=== PATIENT | female | born 1980 | race Caucasian/White ===

== ENCOUNTER 2019-12-10 08:38 | Day surgery (SDC) | payer MEDICARE, OTHER ==
[2019-12-07 08:29] VITALS: BMI 39.9
--- NOTE | 2019-12-10 05:22 | HP ---
HISTORY AND PHYSICAL CHIEF COMPLAINT: Keloid of the right ear. HISTORY OF PRESENT ILLNESS: This patient is a 39-year-old female who is well known to my office and was recently seen for an evaluation of a possibly enlarging keloid in the right ear. She has undergone multiple Kenalog injections to keloids of the right and left ear. At the time that she was seen in my office, clinical examination revealed that she has in fact started to form a small keloid along an incision line near the right ear. It was recommended the patient once again undergo an injection of Kenalog into this area. It has been found that trying to excise these lesions only tends to stimulate more keloid formation. PAST MEDICAL HISTORY: Past medical history reveals that she has no known allergies. She is not currently on any medications. Previous surgeries include multiple surgeries of the left and right ear for keloids, wedge excision of keloid of the right ear and left ear with reconstruction of the right ear x1, multiple intradermal injections of Kenalog-40 suspension to keloids of the right and left ear, adenoidectomy, and tonsillectomy. The patient is 1 para, 1 , 0 miscarriage. There is no history of asthma, diabetes mellitus or hypertension. REVIEW OF SYSTEMS: The review of systems is completely noncontributory. PHYSICAL EXAMINATION: The patient is a very pleasant 39-year-old female who was alert and cooperative. HEENT EXAMINATION: Patient is normocephalic. Tympanic membranes are normal. Middle ear space is free of any fluid or infection. Inspection of the patient's right ear lobe reveals early formation of a keloid along a previous excision line. Pupils are equal, round, react to light and accommodation. Extraocular movements are within normal limits. Tympanic membrane and middle ear spaces are free of any fluid or infection. Intranasal examination reveals moderate septal deviation with compensatory hypertrophy of the inferior turbinates and a moderate amount of mucus on the mucous membranes and draining down the posterior pharynx. Examination of the oropharynx, cranial nerves 2 through 12 and the remainder of the head and neck exam all within normal limits. CHEST/CARDIOVASCULAR: Both lung phillips are clear to percussion and auscultation. The patient is in regular sinus rhythm. S1, S2 are present without any murmurs, S3s or S4s. Peripheral pulses are bilaterally symmetrical and within normal limits. ABDOMEN: There is no evidence any masses, megaly or tenderness. The abdomen is soft. Skin is unremarkable. Musculoskeletal and neurological are within normal limits. PELVIC/RECTAL EXAM: The pelvic/rectal exam is deferred at this time because the patient has this done on a regular basis at her family physician's office. The remainder of physical exam is essentially unremarkable. IMPRESSION: Keloid of the right ear. PLAN: The patient is scheduled to undergo Kenalog-40 injection of the right ear under IV sedation with MAC. ATTENTION RNS IN THE PRE-SURGICAL AREA: I have not ordered any pre-surgical prophylactic antibiotics for this patient. If the pharmacy department sends any pre- surgical prophylactic antibiotics to the pre-surgical area for this patient, that order should be cancelled and the medication should be returned to the pharmacy department. Please make sure that the patient's account is credited appropriately. I have discussed the risks, benefits and alternative therapies for the above-mentioned procedure and for both sedation/analgesia as well as necessary blood product administration, if indicated, as they pertain to this patient. The patient has indicated his or her understanding and acceptance of the risks and procedures discussed. MMODL / IJN: [id number] /
[~2019-12-10 08:38] MED LIST: DEXAMETHASONE SOD PHOSPHATE 10 MG/ML 1 ML VIAL IV ONE; HYDROmorphone 0.5 MG/0.5 ML SYRINGE IVP PRN; LACTATED RINGERS 1,000 ML IV SCH; MIDAZOLAM 2 MG/2 ML VIAL IV PRN; ONDANSETRON 4 MG/2 ML VIAL IVP ONE; SCOPOLAMINE 1.5MG/72HR PATCH TRANSDERM ONE
[2019-12-10 09:11] VITALS: TEMP 98.5
[2019-12-10] MEDS ORDERED: PROPOFOL 10 MG/ML 20 ML VIAL IV ONE (09:55)
[2019-12-10] MEDS ORDERED: fentaNYL (PF) 50 MCG/ML 2 ML AMP ONE (09:55)
[2019-12-10] MEDS ORDERED: MIDAZOLAM 2 MG/2 ML VIAL ONE (09:55)
[2019-12-10] MEDS ORDERED: KETAMINE 10 MG/ML 20 ML VIAL ONE (09:55)
[2019-12-10] MEDS: TRIAMCINOLONE ACETONIDE 40 MG/ML 1 ML VIAL INTRADERMA ONE ×2 (10:13→10:15)
[2019-12-10] MEDS ORDERED: LIDOCAINE 1%-EPI 1:100,000 20 ML VIAL SQ ONE ×2 (10:13→10:15)
[2019-12-10 10:33] VITALS: PULSE 80
[2019-12-10 10:51] VITALS: BP 117/68; RESP 18
--- NOTE | 2019-12-11 00:10 | OP ---
OPERATIVE REPORT DATE OF SURGERY: 12/10/2019 PREOPERATIVE DIAGNOSIS: Keloid of the right ear. POSTOPERATIVE DIAGNOSIS: Keloid of the right ear. ANESTHESIA: IV sedation with M.A.C. OPERATIVE PROCEDURE: Injection of 1.5 mL of Kenalog-40 suspension with lidocaine into keloid of the right ear. OPERATING SURGEON: Dr. Garza. COMPLICATIONS: None. OPERATIVE PROCEDURE: The patient was placed on the operating table in supine position. After uneventful induction and sedation, satisfactory sedation was obtained. Next, the patient's right ear was draped in the usual and customary fashion. Following this, using a 10 mL syringe with a 30-gauge needle, approximately 1.5 mL of a mixture of Kenalog-40 suspension with 0.5 mL of 1% lidocaine with epinephrine was injected throughout the entire keloid. Multiple injections were used to completely infiltrate the entire keloid lesion. At this point the procedure was terminated. There were no intraoperative complications. The patient tolerated the procedure well and was returned to the recovery room in satisfactory condition. MMODL / IJN: [id number] /
== END 2019-12-10 11:14 | disposition home or self-care (01) ==
LOC: OR 08:38
PROVIDERS: ATTEND Otolaryngology
DX: Z98.890 Other specified postprocedural states (principal); Z90.89 Acquired absence of other organs; J34.2 Deviated nasal septum; J34.3 Hypertrophy of nasal turbinates; E66.01 Morbid (severe) obesity due to excess calories; Z68.42 Body mass index [BMI] 45.0-49.9, adult; Z88.8 Allergy status to other drugs, medicaments and biological substances; Z91.018 Allergy to other foods
CPT/HCPCS: 81025; 11900; J2250; J1100; J3301; J2405; J3010; J2704

== ENCOUNTER → 2021-01-09 | Outpatient (CLI) | payer MEDICARE ==
--- NOTE | 2021-01-13 08:47 | MM ---
Reason for exam: screening (asymptomatic). Last mammogram was performed 5 years and 8 months ago. History: Patient is nulliparous. Taking hormonal contraceptives for 8 years 6 months beginning at age 34. Physical Findings: A clinical breast exam by your physician is recommended on an annual basis and results should be correlated with mammographic findings. MG Screening Mammo w CAD Bilateral CC and MLO view(s) were taken. Prior study comparison: May 05, 2015, bilateral MG screening mammo w CAD. The breast tissue is heterogeneously dense. This may lower the sensitivity of mammography. Central superior right breast focal asymmetry was present previously but is now more defined. ASSESSMENT: Incomplete: need additional imaging evaluation, BI-RAD 0 RECOMMENDATION: Special view mammogram of the right breast. (3D) If lesion persists on supplemental views, image directed ultrasound is recommended. [facility] will attempt to contact patient to return for supplemental views and ultrasound if indicated.
== END ==
LOC: RADMAMWWP 13:07
PROVIDERS: ATTEND Obstetrics & Gynecology
DX: Z12.31 Encounter for screening mammogram for malignant neoplasm of breast (principal)
CPT/HCPCS: 77067

== ENCOUNTER → 2024-04-13 | Day surgery (SDC) | payer MEDICARE, OTHER ==
[2024-04-12 09:52] VITALS: BMI 46.7
--- NOTE | 2024-04-12 20:10 | HP ---
HISTORY AND PHYSICAL CHIEF COMPLAINT: Keloid of the right ear. HISTORY OF PRESENT ILLNESS: This patient is a pleasant 44-year-old female who is well known to my office. She has undergone multiple procedures of injection of Kenalog to keloids of the right and left ear. The keloid lesion in the left ear had completely resolved. She was recently seen in my office and was noted that the right ear had once again developed a small keloid. It was recommend the patient undergo injection of Kenalog into this area under IV sedation. It has been found that trying to excise these lesions only tend to stimulate even more keloid formation. PAST MEDICAL HISTORY: She has no known allergies. MEDICATIONS: She is not currently on any medications. PREVIOUS SURGERIES: Include multiple surgeries of the left and right ear for keloids, wedge excision of keloid of the right ear and left ear with reconstruction of the right ear x1, multiple intradermal injections of Kenalog-40 suspension to keloids of the right and left ear, adenoidectomy, tonsillectomy. The patient is para 1 1, miscarriage 0. There is no history of asthma, diabetes mellitus, or hypertension. REVIEW OF SYSTEMS: Completely noncontributory. PHYSICAL EXAMINATION: GENERAL: The patient is a pleasant 44-year-old female who was alert and cooperative. HEENT EXAMINATION: The patient is normocephalic. Tympanic membranes are normal. Examination of the right ear reveals that there is a keloid located in the area of the right earlobe. The left ear is unremarkable. Pupils are equal, round, reactive to light and accommodation. Extraocular movements within normal limits. Intranasal examination reveals moderate septal deviation with compensatory hypertrophy of the inferior turbinates and a moderate amount of mucus on the mucous membranes and draining down the posterior pharynx. The remainder of the head and neck exam is unremarkable. CHEST/CARDIOVASCULAR: Both lung phillips are clear to percussion and auscultation. The patient is in regular sinus rhythm S1, S2 are present. No murmurs. Peripheral pulses are bilaterally symmetrical. ABDOMEN: There is no evidence any masses, megaly, or tenderness. The abdomen is soft. SKIN: Unremarkable. MUSCULOSKELETAL AND NEUROLOGICAL: Within normal limits. PELVIC/RECTAL: Deferred at this time because the patient has done on a regular basis at her family physician's office. The remainder of physical exam is essentially unremarkable. IMPRESSION: Keloid of the right ear. PLAN: The patient is scheduled to undergo a Kenalog injections of keloid of the right ear under IV sedation with MAC. Attention, RNs in the pre-surgical area: I have not ordered any pre-surgical prophylactic antibiotics for this patient. If the pharmacy department sends any pre- surgical prophylactic antibiotics to the pre-surgical area for this patient, please cancel that order and return the medication to the pharmacy department. Also make sure that the patient's account is credited appropriately. MMODL / IJN: [id number] /
[~2024-04-13] MED LIST changes: -DEXAMETHASONE SOD PHOSPHATE 10 MG/ML 1 ML VIAL IV ONE; +KETAMINE HCL IN 0.9 % NACL 50 MG/5 ML SYRINGE ONE; +MIDAZOLAM 2 MG/2 ML VIAL ONE; -ONDANSETRON 4 MG/2 ML VIAL IVP ONE; +PROPOFOL 10 MG/ML 20 ML VIAL IV ONE; +Pre Op ABX Message 1 EACH MISC MISCELLANE ONE; -SCOPOLAMINE 1.5MG/72HR PATCH TRANSDERM ONE; +TRIAMCINOLONE ACETONIDE 40 MG/ML 1 ML VIAL IM ONE; +fentaNYL (PF) 50 MCG/ML 2 ML AMP IVP PRN; +fentaNYL (PF) 50 MCG/ML 2 ML AMP ONE
[2024-04-13] MEDS: LACTATED RINGERS 1,000 ML IV ONE (11:12)
[2024-04-13 11:27] VITALS: RESP 16; TEMP 96.9
[2024-04-13] MEDS: ONDANSETRON 4 MG/2 ML VIAL IVP ONE (11:31)
[2024-04-13] MEDS: DEXAMETHASONE SOD PHOSPHATE 4 MG/ML 1 ML VIAL IV ONE (11:31)
[2024-04-13] MEDS: TRIAMCINOLONE ACETONIDE 40 MG/ML 1 ML VIAL INTRADERMA ONE (12:50)
[2024-04-13] MEDS: LIDOCAINE 1%-EPI 1:100,000 20 ML VIAL SQ ONE (12:50)
[2024-04-13] MEDS: BACITRACIN ZINC 500 UNIT/GM OINT 28.4 GM TUBE TOPICAL ONE (13:07)
[2024-04-13 13:42] VITALS: BP 110/71; PULSE 70
--- NOTE | 2024-04-16 19:40 | OP ---
OPERATIVE REPORT DATE OF SERVICE : 04/13/2024 PREOPERATIVE DIAGNOSIS: Keloid of the right ear. POSTOPERATIVE DIAGNOSIS: Keloid of the right ear. ANESTHESIA: IV sedation with MAC. OPERATIVE PROCEDURE: Injection of 4 mL of Kenalog 40 into the keloid of the right ear. COMPLICATIONS: None. DESCRIPTION OF PROCEDURE: The patient was placed on the operating table in supine position and after uneventful IV sedation, satisfactory sedation was obtained. Next, the patient's right ear was draped and prepped in usual customary fashion. Following this, a solution of Kenalog 40, approximately 4 mL along with 1 mL of 0.25% Marcaine without epinephrine was injected in multiple locations within the substance of the keloid without difficulty. After injecting the 4 mL of Kenalog 40 into the keloid, the procedure was terminated. There were no intraoperative complications. The patient tolerated the procedure well and was returned to the recovery room in satisfactory condition. ESTIMATED BLOOD LOSS: Zero. MMODL / IJN: [id number] /
== END | disposition home or self-care (01) ==
LOC: OR 10:39
PROVIDERS: ATTEND Otolaryngology
DX: L91.0 Hypertrophic scar (principal); Z91.018 Allergy to other foods; Z91.09 Other allergy status, other than to drugs and biological substances
CPT/HCPCS: 11440; J2250; J1100; J3301; J2405; J3010; J2704

== ENCOUNTER → 2024-07-06 | Day surgery (SDC) | payer MEDICARE, OTHER ==
--- NOTE | 2024-07-05 17:13 | HP ---
HISTORY AND PHYSICAL CHIEF COMPLAINT: Keloid of the right ear. HISTORY OF PRESENT ILLNESS: The patient is a very pleasant 44-year-old female, who is well known to my office. She has undergone multiple injections of a keloid to the right ear with excellent results. She recently was seen in my office and stated that she felt that following a recent keloid injection that most of the keloid resolved, but there is still a small portion that is present. It was recommended that she undergo further Kenalog injection of a keloid of the right ear under IV sedation with MAC. PAST MEDICAL HISTORY: Reveals that she has no known allergies to medications. MEDICATIONS: She is not currently on any medications. PREVIOUS SURGERIES: Include multiple intradermal injections of Kenalog suspension to keloids of the right and left ear, adenoidectomy, tonsillectomy, multiple surgeries of the left and right ear for keloids including wedge excision of keloid of the right ear and left ear with reconstruction of the right ear x1. The patient is para 1, 1, miscarriage 0. Previous surgeries also include an adenoidectomy and a tonsillectomy. REVIEW OF SYSTEMS: Completely noncontributory. PHYSICAL EXAMINATION: GENERAL: The patient is a 44-year-old female, who is alert and cooperative. HEENT: The patient is normocephalic. Tympanic membranes are normal. Middle ear spaces are free of any fluid or infection. Examination of the right ear reveals she has a moderately-sized keloid of the right ear, extending onto the right facial area. Pupils are equal, round, reactive to light and accommodation. Extraocular movements within normal limits. Intranasal examination reveals moderate septal deviation with compensatory hypertrophy of inferior turbinates. Moderate amount of mucus on the mucous membranes and draining down the posterior pharynx. Examination of the oropharynx and the remainder of the head and neck exam was unremarkable. CHEST/CARDIOVASCULAR: Both lung phillips are clear to percussion and auscultation. The patient is in regular sinus rhythm. S1, S2 present without any murmurs, S3s, or S4s. Peripheral pulses are bilaterally symmetrical. ABDOMEN: There is no evidence of any masses, megaly, or tenderness. The abdomen is soft. SKIN: Unremarkable. MUSCULOSKELETAL: Within normal limits. NEUROLOGICAL: Within normal limits. PELVIC/RECTAL: This should be printed. The pelvic/rectal exam is deferred at this time because the patient has it done on a regular basis at her family physician's office. Remainder of physical exam is unremarkable. ASSESSMENT: Keloid of the right ear. PLAN: The patient is scheduled undergo an intradermal injection of Kenalog suspension to a keloid of the right ear under IV sedation with MAC in the a.m. Attention, RNs in the pre-surgical area I have not ordered any pre-surgical prophylactic antibiotics for this patient. If the Pharmacy Department sends any pre- surgical prophylactic antibiotics to the pre-surgical area for this patient, that order should be cancelled, and the medication should be returned to the Pharmacy Department. Also make sure that the patient's account is credited appropriately. I have discussed the risks, benefits and alternative therapies for the above-mentioned procedure and for both sedation/analgesia as well as necessary blood product administration, if indicated, as they pertain to this patient. The patient has indicated her understanding and acceptance of the risks and procedures discussed. MMBECKYL / IJN: [id number] /
[~2024-07-06] MED LIST changes: -KETAMINE HCL IN 0.9 % NACL 50 MG/5 ML SYRINGE ONE; -LACTATED RINGERS 1,000 ML IV SCH; +LIDOCAINE 1% (10MG/ML) FOR IV START INTRADERMA PRN; -TRIAMCINOLONE ACETONIDE 40 MG/ML 1 ML VIAL IM ONE; +fentaNYL (PF) 50 MCG/ML 2 ML AMP IV PRN; -fentaNYL (PF) 50 MCG/ML 2 ML AMP IVP PRN
[2024-07-06 10:23] VITALS: RESP 16; TEMP 97.8
[2024-07-06] MEDS: IV FLUID CONTINUATION 1,000 ML IV ONE (10:32)
[2024-07-06] MEDS: ONDANSETRON 4 MG/2 ML VIAL IVP ONE (10:36)
[2024-07-06] MEDS: LACTATED RINGERS 1,000 ML IV SCH (10:36)
[2024-07-06] MEDS: DEXAMETHASONE SOD PHOSPHATE 4 MG/ML 1 ML VIAL IV ONE (10:37)
[2024-07-06] MEDS: TRIAMCINOLONE ACETONIDE 40 MG/ML 1 ML VIAL INTRADERMA STA (11:31)
[2024-07-06] MEDS: BACITRACIN ZINC 500 UNIT/GM OINT 28.4 GM TUBE TOPICAL ONE (11:52)
[2024-07-06 12:24] VITALS: BP 114/62; PULSE 80
--- NOTE | 2024-07-08 20:25 | OP ---
OPERATIVE REPORT DATE OF SERVICE : 07/06/2024 PREOPERATIVE DIAGNOSIS: Keloid of the right ear. POSTOPERATIVE DIAGNOSIS: Keloid of the right ear. ANESTHESIA: IV sedation with MAC. OPERATIVE PROCEDURE: Multiple intradermal injections of Kenalog 40. COMPLICATIONS: None. ESTIMATED BLOOD LOSS: Less than 1 mL. DESCRIPTION OF PROCEDURE: The patient was placed on the operating table in supine position. After uneventful IV sedation, satisfactory sedation was obtained. Next, the patient's right ear was prepped and draped in the usual customary fashion. Following this, a syringe which had been filled with approximately 6 mL of Kenalog 40 suspension was carefully infiltrated into the substance of the keloid in the usual and customary fashion. Multiple ports of injection were performed. The entire 6 mL of Kenalog 40 suspension was used. At this point, the procedure was terminated. There were no intraoperative complications. The patient tolerated the procedure well and was returned to the recovery room in satisfactory condition. MMODL / IJN: [id number] /
== END ==
LOC: OR 09:50
PROVIDERS: ATTEND Otolaryngology
DX: L91.0 Hypertrophic scar (principal); Z79.899 Other long term (current) drug therapy; Z91.011 Allergy to milk products; Z91.018 Allergy to other foods
CPT/HCPCS: 81025

== ENCOUNTER 2025-02-12 16:26 | Emergency (ER) | payer MEDICARE, OTHER ==
[2025-02-12 16:33] VITALS: TEMP 97.7
--- NOTE | 2025-02-12 17:01 | ED ---
Abdominal Pain HPI - General Chief Complaint: Abdominal Pain Stated Complaint: Left side abd pain Time Seen by Provider: 02/12/25 16:58 Source: patient, RN notes reviewed Mode of arrival: ambulatory Limitations: no limitations - History of Present Illness Initial Comments: 45-year-old female presenting for left flank pain x 13 hours. States she woke up at 6 AM this morning with a pain in her left flank. Reports the pain as sharp and intermittent however has become more constant and is worsening in severity. States at first she thought she may have slept wrong however she states she was walking around [facility] today and the pain became so severe that she called her friend who recommended she come to the ER for further evaluation. Patient has never had this pain before. She does admit nausea denies vomiting, urinary symptoms, hematuria, diarrhea, constipation. Denies history of abdominal surgeries. Last bowel movement was this morning and was normal. No other significant health conditions. - Related Data Previous Rx's Medication Instructions Recorded Ketorolac [Toradol] 10 mg PO Q8HR #15 tab 02/12/25 Ondansetron Odt [Zofran Odt] 4 mg PO Q8HR PRN #10 tab 02/12/25 Tamsulosin [Flomax] 0.4 mg PO DAILY #7 cap 02/12/25 Allergies Allergy/AdvReac Type Severity Reaction Status Date / Time chocolate AdvReac puffy Verified 02/12/25 17:24 eyes/runny nose milk AdvReac painful gas Verified 02/12/25 17:24 Milk Containing Products AdvReac gas Verified 02/12/25 17:24 (Dairy) [Dairy] pollen extracts AdvReac STUFFY NOSE Verified 02/12/25 17:24 wheat AdvReac gas Verified 02/12/25 17:24 Review of Systems ROS Statement: Those systems with pertinent positive or pertinent negative responses have been documented in the HPI. ROS Other: All systems not noted in ROS Statement are negative. Past Medical History Past Medical History: No Reported History Additional Past Medical History / Comment(s): current keloid rt ear, hx keloids gui ears, seasonal allergies, MOHAMUD History of Any Multi-Drug Resistant Organisms: None Reported Past Surgical History: Tonsillectomy Additional Past Surgical History / Comment(s): Keloid bilateral ears-(SEVERAL), SKIN LESION. Past Anesthesia/Blood Transfusion Reactions: No Reported Reaction Additional Past Anesthesia/Blood Transfusion Reaction / Comment(s): Unknown Family Hx - patient adopted. Past Psychological History: No Psychological Hx Reported Smoking Status: Never smoker - Past Family History Mother Family Medical History: Unable to Obtain Additional Family Medical History / Comment(s): Patient adopted, unknown family history. General Exam Limitations: no limitations General appearance: alert, in no apparent distress Head exam: Present: atraumatic, normocephalic, normal inspection Eye exam: Present: normal appearance, PERRL, EOMI. Absent: scleral icterus, conjunctival injection, periorbital swelling GI/Abdominal exam: Present: soft, normal bowel sounds. Absent: distended, tenderness, guarding, rebound, rigid Back exam: Present: normal inspection, full ROM. Absent: tenderness, CVA tenderness (R), CVA tenderness (L) Neurological exam: Present: alert, oriented X3 Psychiatric exam: Present: normal affect, normal mood Skin exam: Present: warm, dry, intact, normal color. Absent: rash Course Vital Signs 02/12/25 02/12/25 16:30 18:42 Temperature 97.7 F Pulse Rate 83 75 Respiratory 22 18 Rate Blood Pressure 142/88 125/67 O2 Sat by Pulse 97 98 Oximetry Medical Decision Making - Medical Decision Making Was pt. sent in by a medical professional or institution (ALEJA Bolden, CURATORIAL SPECIALIST, urgent care, hospital, or shelter...) When possible be specific @ -No Did you speak to anyone other than the patient for history (EMS, parent, family, police, friend...)? What history was obtained from this source @ -No Did you review nursing and triage notes (agree or disagree)? Why? @ -I reviewed and agree with nursing and triage notes Were old charts reviewed (outside hosp., previous admission, EMS record, old EKG, old radiological studies, urgent care reports/EKG's, shelter records)? Report findings @ -No old charts were reviewed Differential Diagnosis (chest pain, altered mental status, abdominal pain women, abdominal pain men, vaginal bleeding, weakness, fever, dyspnea, syncope, headache, dizziness, GI bleed, back pain, seizure, CVA, palpatations, mental health, musculoskeletal)? @ -Differential Abdominal Pain Women: Appendicitis, Cholecystitis, diverticulosis, ischemic bowel, pancreatitis, hepatitis, UTI, gastroenteritis, AAA, incarcerated hernia, bowel obstruction, constipation, inflammatory bowel, hepatitis, peptic ulcer disease, splenic infarction, perforated viscus, vulvitis, ovarian torsion, PID, kidney stone, placenta abruption, this is not meant to be an all-inclusive list EKG interpreted by me (3pts min.). @ -None X-rays interpreted by me (1pt min.). @ -None done CT interpreted by me (1pt min.). @ -CT abdomen pelvis reveals obstructing 4 mm proximal left ureteral calculus causing mild upstream hydronephrosis and associated inflammatory changes U/S interpreted by me (1pt. min.). @ -None done What testing was considered but not performed or refused? (CT, X-rays, U/S, labs)? Why? @ -None What meds were considered but not given or refused? Why? @ -None Did you discuss the management of the patient with other professionals (professionals i.e. , PA, CURATORIAL SPECIALIST, lab, RT, psych nurse, public health social worker, recruitment advertising manager, teacher, nursing officer, senior case manager)? Give summary @ -No Was smoking cessation discussed for >3mins.? @ -No Was critical care preformed (if so, how long)? @ -No Were there social determinants of health that impacted care today? How? (Homelessness, low income, unemployed, alcoholism, drug addiction, transportation, low edu. Level, literacy, decrease access to med. care, mcc, rehab)? @ -No Was there de-escalation of care discussed even if they declined (Discuss DNR or withdrawal of care, Hospice)? DNR status @ -No What co-morbidities impacted this encounter? (DM, HTN, Smoking, COPD, CAD, Cancer, CVA, ARF, Chemo, Hep., AIDS, mental health diagnosis, sleep apnea, morbid obesity)? @ -None Was patient admitted / discharged? Hospital course, mention meds given and route, prescriptions, significant lab abnormalities, going to OR and other pertinent info. @ -Discharge. 45-year-old female presenting for left flank pain x 11 hours. Patient is afebrile with no CVA tenderness. Provided with IV fluids, analgesics, and antiemetics. Lab work remarkable for white blood cell count 10. Normal lactic of 1. Urinalysis reveals 59 red blood cells and 50 white blood cells however is not a clean-catch. Low suspicion for UTI at this time as patient is not having any urinary symptoms or fevers. Urine culture sent. CT abdomen pelvis reveals obstructing 4 mm proximal left ureteral calculus causing mild upstream hydronephrosis and associated inflammatory changes. Upon reevalua tion, patient reports improved symptoms. Reports pain at about a 3. Discussed results with patient. As pain is controlled, there is no sign of patient can be safely discharged home with close urology follow-up and strict return precautions. Discussed supportive care with patient. Provided with outpatient prescription for Flomax, Toradol, and Zofran. Case was discussed with my ED attending Dr. Clark. Undiagnosed new problem with uncertain prognosis? @ -No Drug Therapy requiring intensive monitoring for toxicity (Heparin, Nitro, Insulin, Cardizem)? @ -No Were any procedures done? @ -No Diagnosis/symptom? @ -Left nephrolithiasis Acute, or Chronic, or Acute on Chronic? @ -Acute Uncomplicated (without systemic symptoms) or Complicated (systemic symptoms)? @ -Uncomplicated Side effects of treatment? @ -No Exacerbation, Progression, or Severe Exacerbation? @ -No Poses a threat to life or bodily function? How? (Chest pain, [place], [place], pneumonia, PE, COPD, DKA, ARF, appy, cholecystitis, CVA, Diverticulitis, Homicidal, Suicidal, threat to staff... and all critical care pts) @ -No - Lab Data Result diagrams: 02/12/25 17:13 02/12/25 17:13 Lab Results 02/12/25 02/12/25 02/12/25 Range/Units 17:13 17:13 17:13 WBC 10.59 H (4.50-10.00) 10*3/uL RBC 4.81 (4.10-5.20) 10*6/uL Hgb 13.8 (12.0-15.0) g/dL Hct 40.7 (37.2-46.3) % MCV 84.6 (80.0-97.0) fL MCH 28.7 (27.0-32.0) pg MCHC 33.9 (32.0-37.0) g/dL Plt Count 323 (140-440) 10*3/uL MPV 9.3 L (9.5-12.2) fL Immature Gran % (Auto) 0.4 % Neutrophils % 82.5 % Lymphocytes % 10.7 % Monocytes % 6.1 % Eosinophils % 0.0 % Basophils % 0.3 % Immature Gran # 0.04 (0.00-0.04) 10*3/uL Neutrophils # 8.74 H (1.80-7.70) 10*3/uL Lymphocytes # 1.13 (0.90-5.00) 10*3/uL Monocytes # 0.65 (0.20-1.00) 10*3/uL Eosinophils # 0.00 L (0.04-0.35) 10*3/uL Basophils # 0.03 (0.00-0.10) 10*3/uL Sodium 139 (137-145) mmol/L Potassium 4.6 (3.5-5.1) mmol/L Chloride 104 (98-107) mmol/L Carbon Dioxide 27 (22-30) mmol/L Anion Gap 8 mmol/L BUN 16 (7-17) mg/dL Creatinine 0.98 (0.52-1.04) mg/dL Est GFR (CKD-EPI)AfAm 80 (>60 ml/min/1.73 sqM) Est GFR (CKD-EPI)NonAf 69 (>60 ml/min/1.73 sqM) Glucose 140 H (74-99) mg/dL Plasma Lactic Acid Bernard (0.7-2.0) mmol/L Calcium 9.4 (8.4-10.2) mg/dL Total Bilirubin 0.9 (0.2-1.3) mg/dL AST 39 H (14-36) U/L ALT 46 H (4-34) U/L Alkaline Phosphatase 89 (38-126) U/L Total Protein 8.1 (6.3-8.2) g/dL Albumin 4.4 (3.5-5.0) g/dL Lipase 121 (23-300) U/L Urine Color Urine Appearance (Clear) Urine pH (5.0-8.0) Ur Specific [place] (1.001-1.035) Urine Protein (Negative) Urine Glucose (UA) (Negative) Urine Ketones (Negative) Urine Blood (Negative) Urine Nitrite (Negative) Urine Bilirubin (Negative) Urine Urobilinogen (<2.0) mg/dL Ur Leukocyte Esterase (Negative) Urine RBC (0-5) /hpf Urine WBC (0-5) /hpf Ur Squamous Epith Cells (0-4) /hpf Hyaline Casts (0-2) /lpf Urine Mucus (None) /hpf Urine HCG, Qual Not Detected (Not Detectd) 02/12/25 02/12/25 Range/Units 17:13 17:13 WBC (4.50-10.00) 10*3/uL RBC (4.10-5.20) 10*6/uL Hgb (12.0-15.0) g/dL Hct (37.2-46.3) % MCV (80.0-97.0) fL MCH (27.0-32.0) pg MCHC (32.0-37.0) g/dL Plt Count (140-440) 10*3/uL MPV (9.5-12.2) fL Immature Gran % (Auto) % Neutrophils % % Lymphocytes % % Monocytes % % Eosinophils % % Basophils % % Immature Gran # (0.00-0.04) 10*3/uL Neutrophils # (1.80-7.70) 10*3/uL Lymphocytes # (0.90-5.00) 10*3/uL Monocytes # (0.20-1.00) 10*3/uL Eosinophils # (0.04-0.35) 10*3/uL Basophils # (0.00-0.10) 10*3/uL Sodium (137-145) mmol/L Potassium (3.5-5.1) mmol/L Chloride (98-107) mmol/L Carbon Dioxide (22-30) mmol/L Anion Gap mmol/L BUN (7-17) mg/dL Creatinine (0.52-1.04) mg/dL Est GFR (CKD-EPI)AfAm (>60 ml/min/1.73 sqM) Est GFR (CKD-EPI)NonAf (>60 ml/min/1.73 sqM) Glucose (74-99) mg/dL Plasma Lactic Acid Bernard 1.1 (0.7-2.0) mmol/L Calcium (8.4-10.2) mg/dL Total Bilirubin (0.2-1.3) mg/dL AST (14-36) U/L ALT (4-34) U/L Alkaline Phosphatase (38-126) U/L Total Protein (6.3-8.2) g/dL Albumin (3.5-5.0) g/dL Lipase (23-300) U/L Urine Color Yellow Urine Appearance Cloudy H (Clear) Urine pH 6.5 (5.0-8.0) Ur Specific [place] 1.034 (1.001-1.035) Urine Protein Trace H (Negative) Urine Glucose (UA) Negative (Negative) Urine Ketones Negative (Negative) Urine Blood Large H (Negative) Urine Nitrite Negative (Negative) Urine Bilirubin Negative (Negative) Urine Urobilinogen <2.0 (<2.0) mg/dL Ur Leukocyte Esterase Large H (Negative) Urine RBC 59 H (0-5) /hpf Urine WBC 50 H (0-5) /hpf Ur Squamous Epith Cells 8 H (0-4) /hpf Hyaline Casts 1 (0-2) /lpf Urine Mucus Rare H (None) /hpf Urine HCG, Qual (Not Detectd) Disposition Clinical Impression: Left nephrolithiasis Disposition: HOME SELF-CARE Condition: Stable Instructions (If sedation given, give patient instructions): Kidney Stones (ED) Additional Instructions: Take Flomax as prescribed to coffee roaster helper in passage of stone. Use take Toradol as needed for pain and Zofran as needed for nausea. Drink plenty of fluids. Follow-up with urology within the week. Please return to the Emergency Department if symptoms worsen or any other concerns. Prescriptions: Tamsulosin [Flomax] 0.4 mg PO DAILY #7 cap Ketorolac [Toradol] 10 mg PO Q8HR #15 tab Ondansetron Odt [Zofran Odt] 4 mg PO Q8HR PRN #10 tab PRN Reason: Nausea Is patient prescribed a controlled substance at d/c from ED?: No Referrals: Cesario Carranza DO [Primary Care Provider] - 1-2 days Radames Stanton MD [STAFF PHYSICIAN] - 1-2 days Time of Disposition: 19:05
[2025-02-12] MEDS: ONDANSETRON 4 MG/2 ML VIAL IVP STA (17:21)
[2025-02-12] MEDS: KETOROLAC 15 MG/ML 1 ML VIAL IVP STA (17:21)
[2025-02-12] MEDS: SODIUM CHLORIDE 0.9% 1,000 ML IV STA (17:22)
[2025-02-12 17:29] LABS: Basophils # (A) 0.03 10*3/uL (0.00-0.10); Basophils % (A) 0.3 %; HCT 40.7 % (37.2-46.3); HGB 13.8 g/dL (12.0-15.0); Lymphocytes # (A) 1.13 10*3/uL (0.90-5.00); Lymphocytes % (A) 10.7 %; MCH 28.7 pg (27.0-32.0); MCHC 33.9 g/dL (32.0-37.0); MCV 84.6 fL (80.0-97.0); Mean Platelet Volume 9.3 fL (9.5-12.2); Monocytes # (A) 0.65 10*3/uL (0.20-1.00); Monocytes % (A) 6.1 %; Neutrophils # (A) 8.74 10*3/uL (1.80-7.70); Neutrophils % (A) 82.5 %; Platelet Count 323 10*3/uL (140-440); RBC 4.81 10*6/uL (4.10-5.20); RDW 11.6 % (11.5-14.5); WBC 10.59 10*3/uL (4.50-10.00)
[2025-02-12 17:41] LABS: Appearance,Urine Cloudy (Clear); Bilirubin,Urine Negative (Negative); Blood,Urine Large (Negative); Color,Urine Yellow; Glucose,Urine (UA) Negative (Negative); Hyaline Casts,Urine 1 /lpf (0-2); Ketones,Urine Negative (Negative); Leukocyte Esterase,Urine Large (Negative); Mucus,Urine Rare /hpf; Nitrite,Urine Negative (Negative); PH, Urine 6.5 (5.0-8.0); Protein,Urine Trace (Negative); RBC,Urine 59 /hpf (0-5); Specific Gravity,Urine 1.034 (1.001-1.035); Squamous Epithelial Cell,Urine 8 /hpf (0-4); Urobilinogen,Urine <2.0 mg/dL (<2.0); WBC,Urine 50 /hpf (0-5)
[2025-02-12 17:51] LABS: ALT 46 U/L (4-34); AST 39 U/L (14-36); African American GFR (CKD) 80 (>60 ml/min/1.73 sqM); Albumin 4.4 g/dL (3.5-5.0); Alkaline Phosphatase 89 U/L (38-126); Anion Gap 8 mmol/L; Blood Urea Nitrogen 16 mg/dL (7-17); Calcium 9.4 mg/dL (8.4-10.2); Carbon Dioxide 27 mmol/L (22-30); Chloride 104 mmol/L (98-107); Glucose 140 mg/dL (74-99); Lipase 121 U/L (23-300); Non-African American GFR(CKD) 69 (>60 ml/min/1.73 sqM); Potassium 4.6 mmol/L (3.5-5.1); Sodium 139 mmol/L (137-145); Total Bilirubin 0.9 mg/dL (0.2-1.3); Total Protein 8.1 g/dL (6.3-8.2)
--- NOTE | 2025-02-12 17:55 | CT ---
EXAMINATION TYPE: CT abdomen pelvis wo con DATE OF EXAM: 02/12/2025 5:40 PM COMPARISON: None available. CLINICAL INDICATION: Female, 45 years old with history of left flank pain, kidney stone suspected; le ft flank pain, nausea TECHNIQUE: Axial CT abdomen pelvis wo con;Sagittal and coronal reformats were created on a separate workstation. Oral contrast used: without Oral Contrast CT DLP: 1256.3 mGycm, Automated exposure control for dose reduction was used. FINDINGS: LOWER CHEST: Unremarkable ABDOMEN LIVER: Diffusely hypoattenuating parenchyma. GALLBLADDER AND BILE DUCTS: Layering increased densities within the lumen consistent with gallstones are present. PANCREAS: Unremarkable. SPLEEN: Unremarkable. ADRENAL GLANDS: Unremarkable. KIDNEYS AND URETERS: Proximal 4 mm left ureteral calculus causing mild upstream hydronephrosis and as sociated left perinephric and left periureteral acute inflammation. Additional small nonobstructing l eft renal calculi. No evidence of right-sided hydronephrosis or hydroureter. PELVIS BLADDER: No evidence for wall thickening or mass given limitations of exam. REPRODUCTIVE: Possible fibroid uterus, limited in evaluation due to lack of IV contrast. ABDOMEN & PELVIS STOMACH AND BOWEL: Stomach and duodenum are unremarkable. No evidence of bowel obstruction. PERITONEUM/RETROPERITONEUM: No evidence of pneumoperitoneum or free fluid. VASCULATURE: No evidence of aortic aneurysm. MUSCULOSKELETAL: No acute osseous abnormalities LYMPH NODES: No gross evidence for lymphadenopathy. SOFT TISSUE/ABDOMINAL WALL: Unremarkable IMPRESSION: 1. Obstructing 4 mm proximal left ureteral calculus causing mild upstream hydronephrosis and associa cheri inflammatory changes. 2. Small additional nonobstructing left renal calculi. 3. Additional findings as above. [facility], , 02/12/2025 5:53 PM
[2025-02-12 19:18] VITALS: BP 124/61; PULSE 74; RESP 17
== END 2025-02-12 19:18 | disposition home or self-care (01) ==
LOC: EC 16:26 → SUPCPDRO 16:26 → EC 19:18
DX: N13.2 Hydronephrosis with renal and ureteral calculous obstruction (principal); Z91.018 Allergy to other foods; Z91.011 Allergy to milk products; Z88.8 Allergy status to other drugs, medicaments and biological substances
CPT/HCPCS: 36415; 80053; 83605; 83690; 85025; 81001; 81025; 87086; 74176; 99284; 96374; 96375; 96361; J2405; J1885

== ENCOUNTER → 2025-03-04 | Outpatient (CLI) | payer MEDICARE, OTHER ==
--- NOTE | 2025-03-04 15:37 | XR ---
EXAMINATION TYPE: XR KUB DATE OF EXAM: 03/04/2025 12:47 PM COMPARISON: None CLINICAL INDICATION: Female, 45 years old with history of N20.0; PHH, pain TECHNIQUE: One radiographic view of the abdomen was obtained. FINDINGS: Lung bases are clear. Scattered [id number] stool. No dilated small bowel. Numerous underlying gallstones measuring up to 2.5 cm. IMPRESSION: Underlying cholelithiasis with stones measuring up to 2.5 cm. [id number] stool. Nonobstructive bowel gas pattern. [facility], Workstation: [facility], 03/04/2025 3:35 PM
== END | disposition home or self-care (01) ==
LOC: RADXRMAIN 12:34
PROVIDERS: ATTEND Urology
DX: K80.20 Calculus of gallbladder without cholecystitis without obstruction (principal); N20.0 Calculus of kidney
CPT/HCPCS: 74018

== ENCOUNTER → 2025-05-10 | Outpatient (CLI) | payer MEDICARE, OTHER ==
--- NOTE | 2025-05-10 10:23 | MM ---
Reason for Exam: Screening (asymptomatic). Last mammogram was performed 4 year(s) and 4 month(s) ago. Patient History: Menarche at age 11. Patient has no children. Premenopausal. Currently using Hormonal Contraceptives, beginning at age 34 for 8 years, 6 months. Risk Values: Nohemy 5 year model risk: 0.7%. NCI Lifetime model risk: 7.4%. Prior Study Comparison: 05/05/2015 Bilateral Screening Mammogram, [facility]. 05/19/2015 Left Diagnostic Mammogram, [facility]. 01/09/2021 Bilateral Screening Mammogram, [facility]. Tissue Density: There are scattered areas of fibroglandular density. Findings: Analyzed By CAD. There is no suspicious group of microcalcifications or new suspicious mass in either breast. Overall Assessment: Negative, BI-RAD 1 Management: Screening Mammogram of both breasts in 1 year. . Patient should continue monthly self-breast exams. A clinical breast exam by your physician is recommended on an annual basis. This exam should not preclude additional follow-up of suspicious palpable abnormalities. Note on Nohemy scores and lifetime risk: 1. A Nohemy score greater than 3% is considered moderate risk. If this is the case, consider specialist referral to assess eligibility for a risk reducing agent. 2. If overall lifetime risk for the development of breast cancer is 20% or higher, the patient may qualify for future screening with alternating mammogram and breast MRI. [facility], , 05/10/2025 10:20 AM. Electronically signed and approved by: Gio Shaikh M.D.
== END | disposition home or self-care (01) ==
LOC: RADMAMWWP 09:13
PROVIDERS: ATTEND Family Medicine
DX: Z12.31 Encounter for screening mammogram for malignant neoplasm of breast (principal); R92.323 Mammographic fibroglandular density, bilateral breasts; Z79.3 Long term (current) use of hormonal contraceptives
CPT/HCPCS: 77063; 77067